=== PATIENT | male | born 1955 | race Caucasian/White ===

== ENCOUNTER 2018-04-02 17:22 | Emergency (ER) | payer BC ==
[~2018-04-02] VITALS: Ht 175.3 cm; Wt 91.8 kg
[2018-04-02 17:25] VITALS: BP 158/86
[2018-04-02] MEDS ORDERED: HYDR-4353 PO (18:02)
--- NOTE | 2018-04-02 19:01 | NUR ---
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
== END 2018-04-02 19:19 | disposition home or self-care (01) ==
LOC: ER 17:22
DX: S62.613A Displaced fracture of proximal phalanx of left middle finger, initial encounter for closed fracture (principal); M25.562 Pain in left knee; Z79.899 Other long term (current) drug therapy; Z60.2 Problems related to living alone; V57.9XXA Unspecified occupant of pick-up truck or van injured in collision with fixed or stationary object in traffic accident, initial encounter; Y93.89 Activity, other specified; Y92.488 Other paved roadways as the place of occurrence of the external cause; Y99.8 Other external cause status
CPT/HCPCS: 29125; 73130; 73564; 99283